=== PATIENT | female | born 1970 | race Caucasian/White ===

== ENCOUNTER 2017-07-01 11:27 | Emergency (ER) | payer OTHER ==
[~2017-07-01] VITALS: Ht 160 cm; Wt 71.6 kg
[~2017-07-01 11:27] MED LIST: NOHOMEMEDS
[2017-07-01 12:25] LABS: HEMATOCRIT 42.2 % (36.0-46.0); MCH 31.7 PG (29.0-34.0); MCHC 34.4 G/DL (30.0-36.0); MCV 92.3 FL (83-99); MEAN PLAT.VOLUME 10.4 uM^3 (9.5-12.4); PLATELET COUNT 248 K/uL (156-360); RBC DIS.WIDTH-CV 12.7 % (11.8-14.6); RBC DIS.WIDTH-SD 42.9 % (39-53); RED BLOOD COUNT 4.57 M/uL (3.80-5.20); WHITE BLOOD COUNT 7.2 K/uL (4.1-10.2)
[2017-07-01 12:37] LABS: CHLORIDE 108 mEq/L (99-109); POTASSIUM 3.8 mEq/L (3.7-5.4); SODIUM 141 mEq/L (136-147)
[2017-07-01 12:39] LABS: GLUCOSE 99 mg/dL (70-99)
[2017-07-01 12:40] LABS: ANION GAP 12 MEQ/L (2-14)
[2017-07-01 12:43] LABS: GFR ESTIMATE (CALCULATED) 51 mL/min/
[2017-07-01 12:44] LABS: UREA NITROGEN (BUN) 12 mg/dL (9-23)
[2017-07-01 14:43] LABS: ADD MIUA? YES; BILIRUBIN NEGATIVE; BLOOD LARGE; COLOR YELLOW ((YELLOW)); GLUCOSE (STRIP) NEGATIVE; KETONES 5; LEUKOCYTES LARGE; NITRITE POSITIVE; PROTEIN (STRIP) 30; SPECIFIC GRAVITY 1.014 (1.000-1.030); UROBILINOGEN 0.2 MG/DL (0.2-1.0)
[2017-07-01 14:57] LABS: BACTERIA 4+ /HPF; EPITHELIAL CELLS 3+ /HPF; MUCUS NONE SEEN /LPF; UCUL ADDED? YES
[2017-07-01] MEDS ORDERED: BACTRIM,SEPT1 TABLET PO (16:22)
[2017-07-01] MEDS ORDERED: INDOCIN50 MG PO (16:22)
[2017-07-01] MEDS ORDERED: ZOFRAN ODT8 MG PO (16:22)
[2017-07-01] MEDS ORDERED: PYRIDIUM100 MG PO (16:22)
[2017-07-01 16:39] VITALS: BP 120/72
== END 2017-07-01 16:41 | disposition home or self-care (01) ==
LOC: EME 11:27
DX: N39.0 Urinary tract infection, site not specified (principal); F17.200 Nicotine dependence, unspecified, uncomplicated
CPT/HCPCS: 80048; 81003; 85027; 87077; 87086; 87186; 99281; 99285